=== PATIENT | male | born 1945 | race American Indian/Alaskan Native ===

== ENCOUNTER 2019-07-12 07:34 | Observation (INO) | payer MEDICARE ==
[2019-07-12] MEDS ORDERED: ASPIRIN EC 325 MG TAB PO ONE (07:48)
[2019-07-12] MEDS ORDERED: HEPARIN/NS 5000 UNIT/500ML 1,000 ML IR ONE (08:24)
[2019-07-12] MEDS ORDERED: fentaNYL 100 MCG/2 ML INJ ONE (08:25)
[2019-07-12] MEDS ORDERED: MIDAZOLAM 2 MG/2 ML INJ ONE (08:25)
[2019-07-12] MEDS ORDERED: VERAPAMIL 5 MG/2 ML INJ ONE (08:25)
[2019-07-12] MEDS: SODIUM CHLORIDE 0.9% 500 ML 500 ML IV SCH ×2 (08:47→09:58)
[2019-07-12 09:01] LABS: Basophils # (Auto) 0.1 K/mm3 (0.0-0.1); Basophils % (Auto) 1.8 % (0.0-1.8); Eosinophils # (Auto) 0.2 K/mm3 (0.0-0.4); Eosinophils % (Auto) 4.7 % (0.0-4.3); Hemoglobin 13.3 gm/dl (11.8-15.2); Lymphocytes # (Auto) 1.4 K/mm3 (1.2-5.4); Lymphocytes % (Auto) 34.1 % (13.4-35.0); Mean Corpuscular HGB Conc 32 % (32-34); Mean Corpuscular Volume 82 fl (84-94); Monocytes # (Auto) 0.4 K/mm3 (0.0-0.8); Platelet Count 228 K/mm3 (140-440); Red Blood Count 4.97 M/mm3 (3.65-5.03); Red Cell Distribution Width 14.1 % (13.2-15.2)
[2019-07-12 09:15] LABS: INR 1.14 (0.87-1.13); Partial Thromboplastin Time 36.6 Sec. (24.2-36.6)
[2019-07-12 09:19] LABS: Calcium 9.2 mg/dL (8.4-10.2)
[2019-07-12] MEDS: LIDOCAINE (2%) 20 MG/1 ML VIAL 20 ML MDV INFILTRATI ONE ×2 (09:56→10:00)
[2019-07-12] MEDS: NITROGLYCERIN SYRINGE 3 ML ONE ×2 (09:58→10:01)
[2019-07-12] MEDS: HEPARIN 10,000 UNITS/10 ML VIAL ONE ×3 (09:58→10:12)
[2019-07-12] MEDS ORDERED: ATROPINE 0.1% (1 MG/10 ML) CARDIAC SYRINGE ONE (10:15)
[2019-07-12] MEDS ORDERED: ALUM-MAG HYDROXIDE-SIMETHICONE 200-200-20MG/5ML ORAL LIQD 30 ML ONE (10:40)
[2019-07-12] MEDS ORDERED: CLOPIDOGREL 300 MG TAB ONE (10:40)
--- NOTE | 2019-07-12 11:21 | Cardiac Catherization Report ---
REFERRING PHYSICIAN: Dr. Carmine Barajas INDICATION FOR PROCEDURE: The patient is a pleasant 74-year-old -Greek gentleman with multiple risk factors including hypertension, diabetes and hyperlipidemia presents with chest pain. His primary care physician is Dr. Leonard. He is on optimal medical therapy including statin, beta blockade, ARB and Imdur. He had an abnormal nuclear stress test, referred for left heart catheterization. Risks, benefits, and alternatives being explained at length prior to obtaining informed consent. PROCEDURE IN DETAIL: The patient was brought to catheterization lab in a postabsorptive state, prepped and draped in sterile fashion. Alex's test in right hand was normal. A 2 mL of 2% lidocaine used to anesthetize the right wrist. A standard 6-Cymraes hydrophilic sheath used to cannulate the right radial artery via modified Seldinger technique. All exchanges performed to exchange a J-tip guidewire. JL3.5 catheter used to engage the left main. No dampening or ventricularization. Cineangiography performed in all projections. JR4 catheter was used to cross the aortic valve under fluoroscopic guidance. Left ventriculography performed in 30 ALEXANDER and 30 ARMENIAN projections via hand injections, catheter flushed. Manual pullback performed with continuous pressure monitoring. Catheter used to engage the right coronary. No dampening or ventricularization. Cineangiography performed in all projections. Next, catheter removed from the body of wire, sheath removed. DATA: Aortic pressure is 150/70, LV pressure is 150, LVP of 20 mmHg. Left ventriculography reveals preserved LV function, estimated ejection fraction of 55-60%. No evidence of aortic stenosis. CORONARY ANATOMY: This is a right dominant system. Left main without significant disease, bifurcates left anterior descending and left circumflex. Left main without significant disease. Left circumflex, moderate sized vessel, courses AV groove, large OM trunk 25% proximal left circumflex, scattered luminal irregularities throughout the left circumflex, but no obstructive disease. LAD is a moderate sized vessel, courses anterior intergroove, wraps around the apex, moderate diffuse nonobstructive disease. There is a subtotal 99% stenosis in the mid LAD with left to left collaterals with left to right collaterals identified. Diffuse nonobstructive disease otherwise. Right coronary with a chronic total occlusion proximally with extensive right to right collaterals. Otherwise, left to right collaterals are identified as well. Given his symptoms of chest pain, optimal medical therapy and abnormal stress test, we decide to proceed with PCI of LAD. If the symptoms recur after this, would consider elective PCI of ALUMINUM SHINGLE ROOFER RCA. Heparin given. Abnormal ACT confirmed. EBU 3.5 guide used. We used a Marsteller wire to cross the lesion without difficulty. Predilated with a 2.5 x 12. We used two overlapping drug-eluting stents [place] 2.75 x 15 overlapping distally with a 2.5 x 12. The overlap was postdilated at 12 COLLEEN for 30 seconds. Excellent angiographic result. No complications. KARLA 3 flow. Intravascular ultrasound was performed, multiple passes were made, a well-apposed and well-expanded stent. It should be noted that the higher mid LAD, proximal LAD and left main have mild concentric disease, but no obstructive disease identified. MLA of the left main is greater than 8 mmHg. Diffuse LAD disease, but no other obstructive disease. MLA throughout the proximal LAD is greater than 6. Final angiogram reveals excellent result. The patient is chest pain free, clinically stable. I directly supervised the administration of moderate sedation from 9:50 a.m. to 10:40 a.m. with fentanyl and Versed. CONCLUSIONS: 1. Severe 2-vessel coronary artery disease in this right dominant system. A. Successful IVUS-guided PCI of mid LAD with placement of 2 overlapping drug-eluting stents (Evans 2.75 x 15, 2.5 x 12) with excellent final angiographic and ultrasonographic results. 2. Chronic total occlusion of proximal right coronary with extensive [id number] and pvoo-nv-ddhwk collaterals. 3. Preserved left ventricular systolic performance, estimated ejection fraction of 55-60% without evidence of aortic stenosis. At this point, the patient is clinically stable, chest pain free. If he continues to have symptoms, would consider elective PCI of RCA ALUMINUM SHINGLE ROOFER. Continue current medications. Discussed with Dr. Barajas. Standard radial care. Results of procedure explained to the patient and family. All questions and concerns were addressed and discharge in a.m. and follow up with Dr. Barajas in the office. JOB# [id number] SBM/NTS
--- NOTE | 2019-07-12 14:34 | Short Stay Summary ---
Short Stay Documentation Date of service: 07/12/19 - History H&P: obtained from office - Allergies and Medications Current Medications: Allergies No Known Allergies Allergy (Unverified 07/12/19 07:35) Home Medications Medication Instructions Recorded Confirmed Last Taken Type Aspirin EC [Halfprin EC] 81 mg PO QDAY 07/12/19 07/12/19 07/11/19 History 1 tab Ezetimibe [Zetia] 10 mg PO QDAY 07/12/19 07/12/19 07/12/19 History 1 tab Furosemide [Lasix TAB] 20 mg PO QDAY 07/12/19 07/12/19 07/12/19 History 1 tab ISOSORBIDE MONOnitrate [Imdur ER] 30 mg PO DAILY 07/12/19 07/12/19 07/12/19 History 1 tab Indomethacin 50 mg PO BID 07/12/19 07/12/19 07/11/19 History 1 tab Insulin Lispro Protamin/Lispro 31 unit SQ BID 07/12/19 07/12/19 07/11/19 History [Humalog Mix 75-25 Vial] 31 units Losartan [Cozaar] 50 mg PO QDAY 07/12/19 07/12/19 07/12/19 History 1 tab Omeprazole 20 mg PO DAILY 07/12/19 07/12/19 07/11/19 History 1 tab Rosuvastatin Calcium [Crestor] 20 mg PO DAILY 07/12/19 07/12/19 07/11/19 History 1 tab Spironolactone [Aldactone] 25 mg PO QDAY 07/12/19 07/12/19 07/11/19 History 1 tab carvediloL [Coreg] 25 mg PO BID 07/12/19 07/12/19 07/12/19 History 1 tab Active Medications Aspirin (Baby Aspirin) 81 mg PO QDAY [facility] Clopidogrel Bisulfate (Plavix) 75 mg PO QDAY [facility] Sodium Chloride (Nacl 0.9% 500 Ml) 500 mls @ 50 mls/hr IV DIRECT [facility] Stop: 07/12/19 17:59 Last Admin: 07/12/19 09:58 Dose: 50 mls/hr Documented by: - Brief post op/procedure progress note Date of procedure: 07/12/19 Pre-op diagnosis: abnormal stress test Post-op diagnosis: other (CAD) Procedure: LHC with PCI - see dictated cath report Anesthesia: local Estimated blood loss: none Condition: stable - Disposition Condition at discharge: Good Disposition: [id number] TO HOME OR SELFCARE - Discharge Diagnoses (1) CAD (coronary artery disease) Status: Chronic (2) Stented coronary artery Status: Chronic (3) HTN (hypertension) Status: Chronic (4) Diabetes Status: Chronic (5) Hyperlipidemia Status: Chronic Short Stay Discharge Plan Activity: advance as tolerated Diet: low fat, low cholesterol, low salt, diabetic Wound: open to air, keep clean and dry, per your surgeon's advice Follow up with: DONYA GONZALEZ MD [Primary Care Provider] - 7 Days LEROY CARR MD [Staff Physician] - 7 Days Prescriptions: Clopidogrel [Plavix] 75 mg PO QDAY #90 tablet
[2019-07-12] MEDS ORDERED: NON-FORMULARY EACH (Indomethacin [Indomethacin] 50 MG) PO SCH (22:00)
[2019-07-12] MEDS: carvediloL 25 MG TAB PO SCH (22:00)
[2019-07-12] MEDS: INDOMETHACIN 25 MG CAP PO SCH (22:01)
[2019-07-13 05:39] LABS: Eosinophils # (Auto) 0.1 K/mm3 (0.0-0.4); Eosinophils % (Auto) 2.9 % (0.0-4.3); Hematocrit 44.4 % (35.5-45.6); Hemoglobin 14.3 gm/dl (11.8-15.2); Lymphocytes # (Auto) 1.4 K/mm3 (1.2-5.4); Lymphocytes % (Auto) 30.6 % (13.4-35.0); Mean Corpuscular HGB Conc 32 % (32-34); Mean Corpuscular Volume 83 fl (84-94); Monocytes # (Auto) 0.4 K/mm3 (0.0-0.8); Platelet Count 235 K/mm3 (140-440); Red Blood Count 5.35 M/mm3 (3.65-5.03); Red Cell Distribution Width 14.1 % (13.2-15.2)
[2019-07-13 05:56] LABS: Creatine Kinase MB 4.9 ng/mL (0.0-4.0)
[2019-07-13 06:00] LABS: Calcium 9.3 mg/dL (8.4-10.2)
[2019-07-13] MEDS ORDERED: FUROSEMIDE 20 MG TAB PO SCH (06:00)
[2019-07-13 06:56] LABS: Chol/HDL Ratio 6.43 %
--- NOTE | 2019-07-13 07:34 | XRay Report ---
CHEST 1 VIEW INDICATION / CLINICAL INFORMATION: post pci. COMPARISON: None available. FINDINGS: SUPPORT DEVICES: None. HEART / MEDIASTINUM: No significant abnormality. LUNGS / PLEURA: No significant pulmonary or pleural abnormality. No pneumothorax. ADDITIONAL FINDINGS: No significant additional findings. IMPRESSION: 1. No significant change Signer Name: Patrice Borges MD Signed: 07/13/2019 7:30 AM Workstation Name: [id number]
[2019-07-13] MEDS: carvediloL 25 MG TAB PO SCH (09:13)
[2019-07-13] MEDS: INDOMETHACIN 25 MG CAP PO SCH (09:13)
[2019-07-13] MEDS ORDERED: CLOPIDOGREL 75 MG TAB PO SCH (10:00)
[2019-07-13] MEDS ORDERED: NON-FORMULARY EACH (Rosuvastatin Calcium [Crestor] 20 MG) PO SCH (10:00)
[2019-07-13] MEDS ORDERED: SPIRONOLACTONE 25 MG TAB PO SCH (10:00)
[2019-07-13] MEDS ORDERED: EZETIMIBE 10 MG TAB PO SCH (10:00)
[2019-07-13] MEDS ORDERED: LOSARTAN 50 MG TAB PO SCH (10:00)
[2019-07-13] MEDS ORDERED: ASPIRIN 81 MG TAB CHEW PO SCH (10:00)
[2019-07-13 12:10] VITALS: BP 116/58
== END 2019-07-13 13:41 | disposition home or self-care (01) ==
LOC: CATHLABREC 07:34 → 4A 10:49
PROVIDERS: ADMIT Internal Medicine; ATTEND Internal Medicine
DX: I25.110 Atherosclerotic heart disease of native coronary artery with unstable angina pectoris (principal); R94.39 Abnormal result of other cardiovascular function study; E11.9 Type 2 diabetes mellitus without complications; M10.9 Gout, unspecified; E78.2 Mixed hyperlipidemia; I11.9 Hypertensive heart disease without heart failure; Z95.5 Presence of coronary angioplasty implant and graft; Z79.4 Long term (current) use of insulin; Z79.899 Other long term (current) drug therapy; Z79.82 Long term (current) use of aspirin
CPT/HCPCS: 36415; 71045; 80048; 80061; 82550; 82553; 82962; 84484; 85025; 85610; 85730; 92978; 93005; 93010; 93458; A9270; C1725; C1753; C1769; C1874; C1887; C1894; C9600; G0378; J1644; J2250; J3010; J7040; 85347; 92928; J0461; Q9967

== ENCOUNTER 2019-10-21 08:00 | Day surgery (SDC) | payer MEDICARE ==
[2019-10-18 08:39] LABS: Hematocrit 40.6 % (35.5-45.6); Hemoglobin 12.8 gm/dl (11.8-15.2); Mean Corpuscular HGB Conc 32 % (32-34); Mean Corpuscular Volume 81 fl (84-94); Platelet Count 234 K/mm3 (140-440); Red Blood Count 5.04 M/mm3 (3.65-5.03); Red Cell Distribution Width 14.5 % (13.2-15.2)
[2019-10-18 08:55] LABS: Alanine Aminotransferase 22 units/L (7-56); Albumin 3.9 g/dL (3.9-5); BUN/Creatinine Ratio 12; Blood Urea Nitrogen 16 mg/dL (9-20); Hemolysis Index 4
--- NOTE | 2019-10-18 08:56 | Anesthesia Consultation ---
Anesthesia Consult and Med Hx Date of service: 10/21/19 - Airway Anesthetic Teeth Evaluation: Dentures (upper) ROM Head & Neck: Adequate Mental/Hyoid Distance: Adequate Mallampati Class: Class III Intubation Access Assessment: Possibly Difficult - Pulmonary Exam CTA: Yes - Cardiac Exam Cardiac Exam: RRR - Pre-Operative Health Status ASA Pre-Surgery Classification: ASA3 Proposed Anesthetic Plan: General, MAC - Pre-Anesthesia Comment Pre-Anesthesia Comments: Not a candidate for neuraxial anesthetic since last dose plavix only 4 days prior to scheduled procedure. GA vs MAC pending discussion with surgeon regarding extent of intended procedure. 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) Hx Coronary Artery Disease: Yes (normal EF on [facility] 06/2019) Hx Heart Attack/AMI: Yes (06/2019) Hx Percutaneous Transluminal Coronary Angioplasty (PTCA): Yes (s/p EULALIO 06/2019; also chronic occluded RCA w/o intervention) Hx Cardia Arrhythmia: No Hx Valvular Heart Disease: No - Central Nervous System CVA: No Hx Back Pain: Yes - Gastrointestinal Hx Gastroesophageal Reflux Disease: No - Endocrine Hx Renal Disease: No Hx Liver Disease: No Hx Insulin Dependent Diabetes: Yes Hx Thyroid Disease: No - Other Systems Hx Cancer: Yes (hx bladder ca) Hx Obesity: No - Additional Comments Anesthesia Medical History Comments: No hx anesthetic complications. Hx CAD s/p MT w/ EULALIO placed 06/2019. Was on DAPT but has developed hematuria. Evaulated by golf ball winder and told to hold anticoagulation (last dose 10/17/2019) in light of bleeding in preparation for urgent surgery.
--- NOTE | 2019-10-21 07:24 | Anesthesia Day of Surgery ---
Anesthesia Day of Surgery - Day of Surgery Patient Examined: Yes Patient H&P Reviewed: Yes Patient is NPO: Yes
[~2019-10-21 08:00] MED LIST: BACTERIOSTATIC SODIUM CHLORIDE 0.9% 30 ML VIAL INFILTRATI ONE; MIDAZOLAM 2 MG/2 ML INJ ONE; SODIUM CHLORIDE 0.9% 1000 ML 1,000 ML IV SCH; ceFAZolin/STERILE WATER 2 GM/20 ML SYRINGE IV NR; fentaNYL 100 MCG/2 ML INJ ONE; propofoL 200 MG/20 ML VIAL IV ONE
[2019-10-21] MEDS ORDERED: dexAMETHasone 20 MG/5 ML VIAL ONE (08:29)
[2019-10-21] MEDS ORDERED: LIDOCAINE MPF (2%) 20 MG/1 ML VIAL 5 ML ONE (08:29)
[2019-10-21] MEDS ORDERED: ONDANSETRON 4 MG/2 ML INJ ONE (08:29)
[2019-10-21] MEDS ORDERED: HYDROmorphone 1 MG/1 ML INJ ONE ×2 (09:10→10:54)
[2019-10-21] MEDS ORDERED: METHYLENE BLUE 50 MG/10 ML AMP ONE (09:10)
[2019-10-21] MEDS ORDERED: FUROSEMIDE 40 MG/4 ML INJ ONE (09:37)
[2019-10-21] MEDS: fentaNYL 100 MCG/2 ML INJ IV PRN ×2 (09:50→10:25)
--- NOTE | 2019-10-21 10:10 | Fluoroscopy Report ---
7 fluoroscopic images submitted Indication: Intraoperative localization Impression: 7 images of the abdomen were submitted for documentation purposes with radiology involve ment. Right-sided retrograde pyelogram was performed. Please refer to the operative note for complet e details. Fluoroscopic time: 1.9 minutes of fluoroscopic time. Signer Name: Porfirio Patrick MD Signed: 10/21/2019 10:06 AM Workstation Name: [id number]
[2019-10-21] MEDS ORDERED: ePHEDrine SULFATE 50 MG/1 ML INJ ONE (10:43)
--- NOTE | 2019-10-21 11:00 | Post Operative Note ---
Date of procedure: 10/21/19 Pre-op diagnosis: bladder cancer Post-op diagnosis: same Findings: large invassive tcc ll wall Procedure: cysto turbt Anesthesia: GETA Surgeon: ROGELIO BULL Estimated blood loss: minimal Pathology: list (bladder tumor) Specimen disposition: to lab Condition: stable Disposition: PACU
--- NOTE | 2019-10-21 11:02 | Discharge Summary ---
Short Stay Discharge Plan Activity: other (no straining ) Weight Bearing Status: Full Weight Bearing Diet: regular, low fat, low cholesterol, low salt Special Instructions: other (inc fluids ) Durable Medical Equipment Needed Upon Discharge: other (home with zelaya ) Follow up with: DONYA GONZALEZ MD [Primary Care Provider] - 7 Days ROGELIO BULL MD [Staff Physician] - 7 Days
[2019-10-21] MEDS ORDERED: FUROSEMIDE 40 MG/4 ML INJ IV ONE (11:10)
--- NOTE | 2019-10-21 11:16 | Operative Report ---
PREOPERATIVE DIAGNOSES: Gross hematuria, large bladder tumor, posterior wall of the bladder on the left side and urethral stricture. POSTOPERATIVE DIAGNOSES: Gross hematuria, large bladder tumor, posterior wall of the bladder on the left side and urethral stricture. PROCEDURE: Cystoscopy, direct vision internal urethrotomy, resection of bladder tumor, right retrograde. SURGEON: Dr. Julien. ANESTHESIA: General. FINDINGS: This is a gentleman with a large bladder tumor, now presents for treatment. All risks and implications discussed. He has been bleeding, on Plavix for quite some time. DESCRIPTION OF PROCEDURE: The patient was brought to the operating room and placed on the operating table. Following induction of anesthesia, placed in lithotomy position, prepped and draped in usual sterile fashion. Cystourethroscopy showed a stricture. We placed a wire in the bladder under direct vision internal urethrotomy was carried out. There was a middle lobe extending from the left lobe of the prostate. We could see the trigone. The tumor is a little more proximal on the bladder, but the trigone was slightly malrotated from this large mass. The mass was resected down to muscle. It looks to be a very solid and invasive tumor. Hemostasis was achieved. We stopped the bleeding. We did a right retrograde the left side, there was some edema around it, but it looks like the orifice was intact. We did give him blue, but his creatinine was 1.3, but after about 15 minutes, we did not see blue on either side. The patient tolerated the procedure well. A was placed, brought to recovery room in stable condition. JOB# [id number] KINJAL/NORMA
[2019-10-21] MEDS ORDERED: FUROSEMIDE 20 MG/2 ML INJ IV ONE (12:00)
[2019-10-21 12:47] VITALS: BP 161/79
--- NOTE | 2019-10-21 14:01 | Post Anesthesia Evaluation ---
- Post Anesthesia Evaluation Patient Participated: Yes Airway Patent: Yes Stable Respiratory Function: Yes Nausea/Vomiting: No Temp > 96.8F: Yes Pain Manageable: Yes Adequeate Hydration: Yes Anesthesia Complications: No
== END 2019-10-21 08:01 | disposition home or self-care (01) ==
LOC: OR 08:00
PROVIDERS: ATTEND Urology
DX: R31.0 Gross hematuria (principal); C67.4 Malignant neoplasm of posterior wall of bladder; I25.10 Atherosclerotic heart disease of native coronary artery without angina pectoris; N35.819 Other urethral stricture, male, unspecified site; I10 Essential (primary) hypertension; E11.9 Type 2 diabetes mellitus without complications; E78.5 Hyperlipidemia, unspecified; E78.00 Pure hypercholesterolemia, unspecified; K21.9 Gastro-esophageal reflux disease without esophagitis; Z11.59 Encounter for screening for other viral diseases; Z98.890 Other specified postprocedural states; Z79.82 Long term (current) use of aspirin; Z79.899 Other long term (current) drug therapy; Z87.891 Personal history of nicotine dependence; Z95.5 Presence of coronary angioplasty implant and graft; Z83.3 Family history of diabetes mellitus
CPT/HCPCS: 36415; 52240; 52276; 74420; 80053; 82962; 85027; 86850; 86900; 86901; 88305; 88341; 88342; J0690; J1100; J1170; J1940; J2405; J2704; J3010; J7030; Q9967; Q9968; U0003; 88307; J2250

== ENCOUNTER 2019-11-14 08:50 | Outpatient (CLI) | payer MEDICARE ==
--- NOTE | 2019-11-14 12:11 | PET Report ---
PET/CT HISTORY: R31.0. Initial staging of bladder cancer TECHNIQUE: The patient's fasting blood glucose was 90. The patient weighed 209 lbs. The patient wa s injected with 13.8 mCi of FDG in the left antecubital fossa at 0934 hours and imaging was started a t 1030 hours. The patient was imaged from the skull base to the thighs. All CT scans at this [facility] are performed using CT dose reduction for ALARA by means of automated exposure control. Images were reviewed on a workstation. COMPARISON: No relevant comparison at this facility FINDINGS: IMAGED BRAIN: [Physiologic FDG uptake. NECK: Physiologic FDG uptake. CHEST WALL: Physiologic FDG uptake. MEDIASTINUM: Physiologic FDG uptake. LUNGS: Physiologic FDG uptake. HEPATOBILIARY: Physiologic FDG uptake. Liver uptake measures 4.7. PANCREAS: Physiologic FDG uptake. SPLEEN: Physiologic FDG uptake. KIDNEYS/BLADDER: There is moderate thickening of the left lateral and posterior bladder wall. The le ft lateral bladder wall measures up to 2.2 cm in thickness and demonstrates a max SUV of 25.1. This a ppears to obstruct the distal left ureter resulting in moderate left hydronephrosis. 3.7 cm right amalia al cyst is identified. Otherwise, the kidneys are unremarkable. ADRENAL GLANDS: Physiologic FDG uptake. GI/MESENTERY: Physiologic FDG uptake. LYMPH NODES: There are multiple hypermetabolic lymph nodes in the pelvis. An approximate 1 cm right common iliac lymph node demonstrates a max SUV of 16.7. An approximate 1 cm left common iliac lymph n ode demonstrates a max SUV of 18.3. There are 2 left external iliac lymph nodes measuring up to 1.5 c m demonstrating Max SUV values of 18.2 and 27.7. There is a focus of uptake adjacent to the left obtu rator internus muscle with max SUV measuring 12.7 which presumably represents a small left pelvic lym ph node. OSSEOUS STRUCTURES: The T10 vertebral body, L4 vertebral body, bilateral iliac bones and sacrum have a mottled and heterogeneous appearance. There is a tiny focus of increased uptake anteriorly in T10 with max SUV measuring 7.2. There is subtle increased uptake in the L5 vertebral body with max SUV me asuring 4.6. There is subtle increased uptake throughout the heterogeneous pelvic bones with max SUV measuring up to 4.7. These presumably represent metastatic bony lesions.. ADDITIONAL FINDINGS: None. IMPRESSION: Hypermetabolic bladder mass as described above consistent with primary neoplasm. There are multiple mildly enlarged and hypermetabolic lymph nodes in the pelvis as described including the right common iliac chain, left common iliac chain and left external iliac chain consistent with metastatic kiara d isease. T10, L4 and pelvic bones are diffusely heterogeneous and mottled with scattered areas of mild increased uptake as described. Bony metastases cannot be excluded. Signer Name: Patrick Keane Jr, MD Signed: 11/14/2019 12:07 PM Workstation Name: [id number]
== END 2019-11-14 08:51 | disposition home or self-care (01) ==
LOC: PET 08:50
PROVIDERS: ATTEND Internal Medicine Hematology & Oncology
DX: C67.2 Malignant neoplasm of lateral wall of bladder (principal); C79.51 Secondary malignant neoplasm of bone; E11.9 Type 2 diabetes mellitus without complications; N28.1 Cyst of kidney, acquired; N32.89 Other specified disorders of bladder
CPT/HCPCS: 78815; 82962; A9552